=== PATIENT | female | born 1995 | race Caucasian/White ===

== ENCOUNTER 2023-06-22 18:35 | Emergency (ER) | payer OTHER ==
[~2023-06-22] VITALS: Ht 160 cm; Wt 62.6 kg
[2023-06-22 19:02] VITALS: BP 137/98; TEMP 98.4; O2SAT 100
== END 2023-06-22 20:20 | disposition home or self-care (01) ==
LOC: ER 18:40
DX: N93.9 Abnormal uterine and vaginal bleeding, unspecified (principal)